=== PATIENT | female | born 1990 | race Caucasian/White ===

== ENCOUNTER 2022-06-17 19:36 | Inpatient (IN) | payer OTHER, MEDICAID ==
--- NOTE | 2022-06-17 22:33 | ED ---
Psych HPI - General Chief Complaint: Psychiatric Symptoms Stated Complaint: Mental Health/petitioned Time Seen by Provider: 06/17/22 22:14 Source: patient, RN notes reviewed, old records reviewed Mode of arrival: ambulatory - History of Present Illness Initial Comments: Patient is a 32-year-old female presenting to the emergency room via police escort for court ordered petition for psychiatric evaluation due to statements of suicidal thoughts. She at this time denies any suicidal thoughts, homicidal thoughts, hallucinations or delusions. She denies any past history of mental health illnesses or mental health treatment. She reports feeling agitated by the current situation with a slight headache due to her agitation, otherwise denies any other complaints at this time including chest pain, shortness of breath, abdominal pain, nausea, vomiting, dizziness, urinary frequency, urgency, fevers or chills. She has no significant past medical history and does not take any medications on a regular basis. - Related Data Home Medications Medication Instructions Recorded Confirmed No Known Home Medications 06/18/22 06/18/22 Allergies Allergy/AdvReac Type Severity Reaction Status Date / Time adhesive Allergy Severe Swelling Verified 06/18/22 11:17 codeine Allergy Rash/Hives Verified 06/18/22 08:34 Review of Systems ROS Statement: Those systems with pertinent positive or pertinent negative responses have been documented in the HPI. ROS Other: All systems not noted in ROS Statement are negative. Past Medical History Past Medical History: No Reported History History of Any Multi-Drug Resistant Organisms: None Reported Past Surgical History: Ear Surgery, Tubal Ligation Past Psychological History: No Psychological Hx Reported Smoking Status: Current every day smoker Past Alcohol Use History: None Reported Past Drug Use History: None Reported General Exam Limitations: no limitations General appearance: alert, in no apparent distress Head exam: Present: atraumatic, normocephalic, normal inspection Eye exam: Present: normal appearance, PERRL, EOMI. Absent: scleral icterus, conjunctival injection, periorbital swelling ENT exam: Present: normal exam, mucous membranes moist Neck exam: Present: normal inspection, full ROM Respiratory exam: Present: normal lung sounds bilaterally. Absent: respiratory distress, wheezes, rales, rhonchi, stridor Cardiovascular Exam: Present: regular rate, normal rhythm, normal heart sounds. Absent: systolic murmur, diastolic murmur, rubs, gallop, clicks GI/Abdominal exam: Present: soft, normal bowel sounds. Absent: distended, tenderness, guarding, rebound, rigid Rectal exam: Present: deferred Extremities exam: Present: normal inspection. Absent: pedal edema, joint swelling Back exam: Present: normal inspection Neurological exam: Present: alert, oriented X3, CN II-XII intact Psychiatric exam: Present: agitated. Absent: homicidal ideation, suicidal ideation Expanded Focused psych exam: Present: pressured speech, flight of ideas Skin exam: Present: warm, dry, intact, normal color. Absent: rash Course Vital Signs 06/17/22 19:51 Temperature 98.4 F Pulse Rate 82 Respiratory 16 Rate Blood Pressure 129/76 O2 Sat by Pulse 99 Oximetry Medical Decision Making - Medical Decision Making 32-year-old female presenting to the emergency room via police escort for coronary petition for psychiatric evaluation for suicidal ideation which patient currently denies. She also denies any other significant complaints or concerns other than mild agitation and a slight headache which are situational. No indication for diagnostic imaging or laboratory studies. Patient placed in psychiatric room with removal of harmful objects. Will order blood alcohol test, drug screen along with Covid test and and clear from a medical standpoint for EPS evaluation. EPS evaluation completed and patient to be admitted for inpatient psychiatric treatment. Petition on chart. Psychiatric certification completed by Dr. Deras and placed on chart. Patient Covid tested and Covid negative. BAT 0.00. Case discussed to with Dr. Deras. EPS insurance check after evaluation revealed patient cannot be admitted to this facility and will need transfer out to inpatient psych at alternative site. Will need a CBC, BMP, urine drug screen, test completed for transfer, will order. Transfer to alternative inpatient psychiatric facility pending. Further evaluation by psychiatric staff revealed ability to admit to our facility patient to be admitted to inpatient psych here at [facility]. - Lab Data Result diagrams: 06/18/22 02:59 06/18/22 02:59 Lab Results 06/17/22 06/18/22 06/18/22 Range/Units 23:00 02:59 02:59 WBC 11.1 H (3.8-10.6) k/uL RBC 5.42 H (3.80-5.40) m/uL Hgb 16.7 H (11.4-16.0) gm/dL Hct 48.3 H (34.0-46.0) % MCV 89.3 (80.0-100.0) fL MCH 30.8 (25.0-35.0) pg MCHC 34.5 (31.0-37.0) g/dL RDW 12.7 (11.5-15.5) % Plt Count 212 (150-450) k/uL MPV 8.7 Neutrophils % 67 % Lymphocytes % 25 % Monocytes % 5 % Eosinophils % 1 % Basophils % 0 % Neutrophils # 7.4 (1.3-7.7) k/uL Lymphocytes # 2.8 (1.0-4.8) k/uL Monocytes # 0.5 (0-1.0) k/uL Eosinophils # 0.1 (0-0.7) k/uL Basophils # 0.0 (0-0.2) k/uL Sodium 138 (137-145) mmol/L Potassium 4.1 (3.5-5.1) mmol/L Chloride 108 H (98-107) mmol/L Carbon Dioxide 20 L (22-30) mmol/L Anion Gap 10 mmol/L BUN 10 (7-17) mg/dL Creatinine 0.67 (0.52-1.04) mg/dL Est GFR (CKD-EPI)AfAm >90 (>60 ml/min/1.73 sqM) Est GFR (CKD-EPI)NonAf >90 (>60 ml/min/1.73 sqM) Glucose 92 (74-99) mg/dL Calcium 8.9 (8.4-10.2) mg/dL Urine Color Urine Appearance (Clear) Urine pH (5.0-8.0) Ur Specific [place] (1.001-1.035) Urine Protein (Negative) Urine Glucose (UA) (Negative) Urine Ketones (Negative) Urine Blood (Negative) Urine Nitrite (Negative) Urine Bilirubin (Negative) Urine Urobilinogen (<2.0) mg/dL Ur Leukocyte Esterase (Negative) Urine RBC (0-5) /hpf Urine WBC (0-5) /hpf Urine WBC Clumps (None) /hpf Ur Squamous Epith Cells (0-4) /hpf Urine Bacteria (None) /hpf Urine Mucus (None) /hpf Urine HCG, Qual (Not Detectd) Urine Opiates Screen (NotDetected) Ur Oxycodone Screen (NotDetected) Urine Methadone Screen (NotDetected) Ur Propoxyphene Screen (NotDetected) Ur Barbiturates Screen (NotDetected) U Tricyclic Antidepress (NotDetected) Ur Phencyclidine Scrn (NotDetected) Ur Amphetamines Screen (NotDetected) U Methamphetamines Scrn (NotDetected) U Benzodiazepines Scrn (NotDetected) Urine Cocaine Screen (NotDetected) U Marijuana (THC) Screen (NotDetected) Coronavirus (PCR) Not Detected (Not Detectd) 06/18/22 06/18/22 06/18/22 Range/Units 08:25 08:25 08:25 WBC (3.8-10.6) k/uL RBC (3.80-5.40) m/uL Hgb (11.4-16.0) gm/dL Hct (34.0-46.0) % MCV (80.0-100.0) fL MCH (25.0-35.0) pg MCHC (31.0-37.0) g/dL RDW (11.5-15.5) % Plt Count (150-450) k/uL MPV Neutrophils % % Lymphocytes % % Monocytes % % Eosinophils % % Basophils % % Neutrophils # (1.3-7.7) k/uL Lymphocytes # (1.0-4.8) k/uL Monocytes # (0-1.0) k/uL Eosinophils # (0-0.7) k/uL Basophils # (0-0.2) k/uL Sodium (137-145) mmol/L Potassium (3.5-5.1) mmol/L Chloride (98-107) mmol/L Carbon Dioxide (22-30) mmol/L Anion Gap mmol/L BUN (7-17) mg/dL Creatinine (0.52-1.04) mg/dL Est GFR (CKD-EPI)AfAm (>60 ml/min/1.73 sqM) Est GFR (CKD-EPI)NonAf (>60 ml/min/1.73 sqM) Glucose (74-99) mg/dL Calcium (8.4-10.2) mg/dL Urine Color Yellow Urine Appearance Turbid H (Clear) Urine pH 5.5 (5.0-8.0) Ur Specific [place] 1.019 (1.001-1.035) Urine Protein 1+ H (Negative) Urine Glucose (UA) Negative (Negative) Urine Ketones 1+ H (Negative) Urine Blood Small H (Negative) Urine Nitrite Negative (Negative) Urine Bilirubin Negative (Negative) Urine Urobilinogen 3.0 (<2.0) mg/dL Ur Leukocyte Esterase Large H (Negative) Urine RBC 27 H (0-5) /hpf Urine WBC 155 H (0-5) /hpf Urine WBC Clumps Many H (None) /hpf Ur Squamous Epith Cells 49 H (0-4) /hpf Urine Bacteria Occasional H (None) /hpf Urine Mucus Few H (None) /hpf Urine HCG, Qual Not Detected (Not Detectd) Urine Opiates Screen Not Detected (NotDetected) Ur Oxycodone Screen Not Detected (NotDetected) Urine Methadone Screen Not Detected (NotDetected) Ur Propoxyphene Screen Not Detected (NotDetected) Ur Barbiturates Screen Not Detected (NotDetected) U Tricyclic Antidepress Not Detected (NotDetected) Ur Phencyclidine Scrn Not Detected (NotDetected) Ur Amphetamines Screen Not Detected (NotDetected) U Methamphetamines Scrn Not Detected (NotDetected) U Benzodiazepines Scrn Not Detected (NotDetected) Urine Cocaine Screen Not Detected (NotDetected) U Marijuana (THC) Screen Detected H (NotDetected) Coronavirus (PCR) (Not Detectd) Disposition Clinical Impression: Acute psychosis, Maryana Disposition: TRANSFER TO PSYCH HOSP/UNIT Condition: Stable Is patient prescribed a controlled substance at d/c from ED?: No Time of Disposition: 10:10
[2022-06-18 03:23] LABS: Basophils % (A) 0 %; Eosinophils # (A) 0.1 k/uL (0-0.7); Eosinophils % (A) 1 %; HCT 48.3 % (34.0-46.0); HGB 16.7 gm/dL (11.4-16.0); Lymphocytes # (A) 2.8 k/uL (1.0-4.8); Lymphocytes % (A) 25 %; MCH 30.8 pg (25.0-35.0); MCHC 34.5 g/dL (31.0-37.0); MCV 89.3 fL (80.0-100.0); Mean Platelet Volume 8.7; Monocytes # (A) 0.5 k/uL (0-1.0); Monocytes % (A) 5 %; Neutrophils # (A) 7.4 k/uL (1.3-7.7); Neutrophils % (A) 67 %; Platelet Count 212 k/uL (150-450); RBC 5.42 m/uL (3.80-5.40); RDW 12.7 % (11.5-15.5); WBC 11.1 k/uL (3.8-10.6)
[2022-06-18 03:32] LABS: African American GFR (CKD) >90 (>60 ml/min/1.73 sqM); Anion Gap 10 mmol/L; Blood Urea Nitrogen 10 mg/dL (7-17); Calcium 8.9 mg/dL (8.4-10.2); Carbon Dioxide 20 mmol/L (22-30); Chloride 108 mmol/L (98-107); Glucose 92 mg/dL (74-99); Non-African American GFR(CKD) >90 (>60 ml/min/1.73 sqM); Potassium 4.1 mmol/L (3.5-5.1); Sodium 138 mmol/L (137-145)
[2022-06-18 08:46] LABS: Appearance,Urine Turbid (Clear); Bacteria,Urine Occasional /hpf; Bilirubin,Urine Negative (Negative); Blood,Urine Small (Negative); Color,Urine Yellow; Glucose,Urine (UA) Negative (Negative); Ketones,Urine 1+ (Negative); Leukocyte Esterase,Urine Large (Negative); Mucus,Urine Few /hpf; Nitrite,Urine Negative (Negative); PH, Urine 5.5 (5.0-8.0); Protein,Urine 1+ (Negative); RBC,Urine 27 /hpf (0-5); Specific Gravity,Urine 1.019 (1.001-1.035); Squamous Epithelial Cell,Urine 49 /hpf (0-4); WBC,Urine 155 /hpf (0-5)
[2022-06-18 09:03] LABS: Amphetamine Screen,Urine Not Detected (NotDetected); Barbiturate Screen,Urine Not Detected (NotDetected); Benzodiazepines Screen,Urine Not Detected (NotDetected); Cocaine Screen,Urine Not Detected (NotDetected); Methadone Screen, Urine Not Detected (NotDetected); Opiate Screen,Urine Not Detected (NotDetected); Oxycodone Screen, Urine Not Detected (NotDetected); Phencyclidine Screen,Urine Not Detected (NotDetected); Tricyclic Antidepressant,Urine Not Detected (NotDetected); Urn Cannabinoid Scrn Detected (NotDetected)
[2022-06-18] MEDS ORDERED: MAG HYDROX/AL HYDROX/SIMETH 30 ML CUP PO PRN (09:11)
[2022-06-18] MEDS ORDERED: ACETAMINOPHEN TAB 325 MG TAB PO PRN (09:11)
[2022-06-18] MEDS ORDERED: MAGNESIUM HYDROXIDE 2,400 MG/10 ML CUP PO PRN (09:11)
[2022-06-18] MEDS ORDERED: LORazepam 1 MG TAB PO PRN (09:11)
[2022-06-18] MEDS ORDERED: HALOPERIDOL LACTATE 5 MG/ML 1 ML VIAL IM PRN (09:11)
[2022-06-18] MEDS ORDERED: LORazepam 2 MG/ML INJ IM PRN (09:11)
[2022-06-18] MEDS ORDERED: haloperidoL 5 MG TAB PO PRN (09:11)
[2022-06-18] MEDS: NICOTINE 14MG/24HR PATCH TRANSDERM SCH (13:11)
[2022-06-18] MEDS: ARIPiprazole 5 MG TAB PO SCH (13:15)
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
[2022-06-18] MEDS: traZODone HCL 50 MG TAB PO SCH (20:47)
[2022-06-19] MEDS: ARIPiprazole 5 MG TAB PO SCH (08:50)
[2022-06-19] MEDS: NICOTINE 14MG/24HR PATCH TRANSDERM SCH (08:50)
[2022-06-19 09:07] LABS: ALT 23 U/L (4-34); AST 25 U/L (14-36); Albumin 4.1 g/dL (3.5-5.0); Alkaline Phosphatase 61 U/L (38-126); Bilirubin, Delta 0.3 mg/dL (0.0-0.2); Bilirubin,Unconjugated 1.1 mg/dL (0.0-1.1); Total Bilirubin 1.4 mg/dL (0.2-1.3); Total Protein 6.8 g/dL (6.3-8.2)
--- NOTE | 2022-06-19 10:11 | P.HPMEDMHU ---
History of Present Illness H&P Date: 06/19/22 Chief Complaint: Patient denying any medical or psychiatric complaints Patient is a 32-year-old female with no significant past medical history and on no medications reports smoking marijuana annd smoking cigarettes who was admitted to the psych unit for bipolar. Patient states that she is upset because there is a court order that is accusing her of things that she hasn't done. Patient states that her boyfriend has a service dog that is able to detect people who have heart conditions. She states that the dog has been sniffing her as if she has a heart condition. She states that her boyfriend is concerned and wants her to get checked out. However patient states that she is now worried and does not believe that she has any heart condition. She denies any PND, orthopnea or chest pain. Review of Systems 10 ROS reviewed and are negative except as noted in HPI Past Medical History Past Medical History: No Reported History History of Any Multi-Drug Resistant Organisms: None Reported Past Surgical History: Ear Surgery, Tubal Ligation Past Psychological History: No Psychological Hx Reported Smoking Status: Current every day smoker Past Alcohol Use History: None Reported Past Drug Use History: None Reported Medications and Allergies Home Medications Medication Instructions Recorded Confirmed Type No Known Home Medications 06/18/22 06/18/22 History Allergies Allergy/AdvReac Type Severity Reaction Status Date / Time adhesive Allergy Severe Swelling Verified 06/18/22 11:17 codeine Allergy Rash/Hives Verified 06/18/22 08:34 Physical Exam Osteopathic Statement: *. No significant issues noted on an osteopathic structural exam other than those noted in the History and Physical/Consult. Vitals: Vital Signs Temp Pulse Resp BP Pulse Ox 06/18/22 10:43 97.5 F L 88 20 137/63 99 General: [Alert and oriented, well nourished, no acute distress]. Eye: [PERRL, EOMI, normal conjunctiva]. HENT: [Normocephalic, clear tympanic membranes, normal hearing, moist oral mucosa, no scleral icterus, no sinus tenderness]. Neck: [Supple, non-tender, no carotid bruits, no JVD, no lymphadenopathy]. Lungs: [Clear to auscultation and percussion, non-labored respiration]. Heart: [Normal rate, regular rhythm, no murmur, gallop or edema]. Abdomen: [Soft, non-tender, non-distended, normal bowel sounds, no masses]. Musculoskeletal: [Normal range of motion and strength, no tenderness or swelling]. Skin: [Skin is warm, dry and pink, no rashes or lesions]. Neurologic: [Awake, alert, and oriented X3, CN II-XII intact]. Psychiatric: [Cooperative, appropriate mood and affect]. Cranial Nerve Examination - Cranial Nerves Cranial Nerve I- Olfactory: Intact Cranial Nerve II- Optic: Intact Cranial Nerve III- Oculomotor: Intact Cranial Nerve IV- Trochlear: Intact Cranial Nerve V- Trigeminal: Intact Cranial Nerve - Abducens: Intact Cranial Nerve VII- Facial: Intact Cranial Nerve VIII- Auditory: Intact Cranial Nerve IX- Glossopharyngeal: Intact Cranial Nerve X- Vagus: Intact Cranial Nerve XI- Accessory: Intact Cranial Nerve XII- Hypoglossal: Intact Results CBC & Chem 7: 06/18/22 02:59 06/18/22 02:59 Labs: Abnormal Lab Results - Last 24 Hours (Table) 06/19/22 Range/Units 07:31 Total Bilirubin 1.4 H (0.2-1.3) mg/dL Delta Bilirubin 0.3 H (0.0-0.2) mg/dL Microbiology - Last 24 Hours (Table) 06/18/22 08:25 Urine Culture - Preliminary Urine,Voided Thrombosis Risk Factor Assmnt - Choose All That Apply Any of the Below Risk Factors Present?: No Other Risk Factors: No Thrombosis Risk Factor Assessment Level: Very Low Risk Assessment and Plan Assessment: Marijuana use Tobacco abuse Patient counseled on smoking cessation Obesity Encourage weight loss Bipolar As per your psychiatry management Please do not hesitate to call us with any questions or concerns.
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
[2022-06-19 16:48] LABS: Chol/HDL Ratio 6.13 Ratio; LDL Cholesterol,Calculated 154.5 mg/dL (0.0-131.0)
[2022-06-19] MEDS: traZODone HCL 50 MG TAB PO SCH (21:13)
[2022-06-20 06:43] VITALS: TEMP 97.7
[2022-06-20] MEDS: NICOTINE 14MG/24HR PATCH TRANSDERM SCH (08:45)
[2022-06-20] MEDS: ARIPiprazole 5 MG TAB PO SCH (08:45)
[2022-06-20] MEDS: traZODone HCL 50 MG TAB PO SCH (20:37)
[2022-06-21] MEDS: ARIPiprazole 5 MG TAB PO SCH (08:43)
[2022-06-21] MEDS: NICOTINE 14MG/24HR PATCH TRANSDERM SCH (09:25)
[2022-06-21] MEDS ORDERED: LORazepam 1 MG/0.5 ML VIAL IM PRN (14:14)
--- NOTE | 2022-06-21 14:22 | P.PN ---
Progress Note - Text Progress Note Date: 06/20/22 Interval history: Patient was seen playing cards with peer and was directable and agreeable to speak with program writer. She has an irritable edge and reports a peer (new to the unit) is bothering her and she tries to stay away from peer. At this time, patient denies any suicidal or homicidal ideation, intent or plan, and denies any auditory or visual hallucinations. Patient denies any side effects from the medications and has been compliant with meds. Mental status exam: General Appearance: Patient appears to be stated age, obese, dyed hair, fair hygiene. Behavior: No agitated behavior. Speech: Patient's speech is fluent and non-pressured. Mood/Affect: Mood is irritable, affect is congruent and constricted. Suicidality/Homicidality: Patient denies having any suicidal or homicidal ideation intent or plan. Perceptions: Patient denies any auditory or visual hallucinations. Though content/process: There is no evidence of any delusional thought content and thought process is linear and goal-directed. Memory and concentration: AOX3, grossly intact for the purposes of this session Judgment and insight: improving mildly Assessment/Plan: Continue with current diagnosis. Patient continues to meet criteria for inpatient psychiatric admission for symptom stabilization and safety. Patient will be maintained on current psychotropic medication regimen. Monitor for medication compliance and for any psychotropic medication side effects. Will continue to monitor ongoing response to treatment. Encouraged participation in milieu.
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
[2022-06-21] MEDS: traZODone HCL 50 MG TAB PO SCH (20:53)
[2022-06-22] MEDS: ARIPiprazole 5 MG TAB PO SCH (07:59)
[2022-06-22] MEDS: NICOTINE 14MG/24HR PATCH TRANSDERM SCH (08:01)
--- NOTE | 2022-06-22 13:35 | P.PN ---
Progress Note - Text Progress Note Date: 06/22/22 Interval history: Patient was seen walking in the hallway and was directable and agreeable to speak with narrative writer. Her mood appears improved today and affect appears more stable. She denies any concerns today and understands she is waiting to see the collections attorney for deferral. She reports good mood, sleep and appetite. No agitation and no PRNs required so far today. At this time, patient denies any suicidal or homicidal ideation, intent or plan, and denies any auditory or visual hallucinations. Patient denies any side effects from the medications and has been compliant with meds. Mental status exam: General Appearance: Patient appears to be stated age, obese, hair dyed pink, wearing mismatched clothes, fair hygiene. Behavior: No agitated behavior. Speech: Patient's speech is fluent and non-pressured. Mood/Affect: Mood is improved, affect is congruent and labile. Suicidality/Homicidality: Patient denies having any suicidal or homicidal ideation intent or plan. Perceptions: Patient denies any auditory or visual hallucinations. Thought process: Linear, goal-directed. Thought content: No delusional thought content reported today. Memory and concentration: AOX3, grossly intact for the purposes of this session Judgment and insight: improving mildly Assessment/Plan: Continue with current diagnosis. Patient continues to meet criteria for inpatient psychiatric admission for symptom stabilization and safety. Patient will be maintained on current psychotropic medication regimen. Monitor for medication compliance and for any psychotropic medication side effects. Will continue to monitor ongoing response to treatment. Encouraged participation in milieu.
[2022-06-22] MEDS: traZODone HCL 50 MG TAB PO SCH (21:08)
[2022-06-23 06:54] VITALS: BP 116/63; PULSE 68; RESP 19
[2022-06-23] MEDS: ARIPiprazole 5 MG TAB PO SCH (08:52)
[2022-06-23] MEDS: NICOTINE 14MG/24HR PATCH TRANSDERM SCH (08:52)
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
== END 2022-06-23 12:52 | disposition home or self-care (01) | DRG 885 ==
LOC: EC 19:36 → 3MHU 06-18 09:05
PROVIDERS: ADMIT Psychiatry & Neurology Psychiatry; ATTEND Psychiatry & Neurology Psychiatry
DX: F31.9 Bipolar disorder, unspecified (principal); F12.90 Cannabis use, unspecified, uncomplicated; F17.210 Nicotine dependence, cigarettes, uncomplicated; F41.9 Anxiety disorder, unspecified; G47.00 Insomnia, unspecified; Z20.822 Contact with and (suspected) exposure to COVID-19; Z79.899 Other long term (current) drug therapy; Z81.8 Family history of other mental and behavioral disorders
CPT/HCPCS: 36415; 80048; 80061; 80076; 80306; 81001; 81025; 82075; 83036; 84443; 85025; 87086; 87635; 99285